=== PATIENT | male | born 1995 | race African-American/Black ===

== ENCOUNTER 2021-07-02 19:17 | Inpatient (IN) | payer SELFPAY ==
[~2021-07-02] VITALS: Ht 175.3 cm; Wt 72.6 kg
[2021-07-02 20:15] LABS: BASOPHILS % 0.4 % (0.0-2.0); EOSINOPHILS % 0.9 % (0.0-5.0); HEMATOCRIT. 42.7 % (42.0-52.0); LYMPHOCYTES % 28.7 % (20.0-50.0); MEAN CORPUSCULAR HEMOGLOBIN 29.7 pg (28.0-32.0); MEAN CORPUSCULAR VOLUME 84.3 fL (80.0-94.0); MEAN PLATELET VOLUME 8.9 fl (7.4-10.4); MONOCYTES % 5.2 % (2.0-8.0); NEUTROPHILS % 64.8 % (40.0-76.0); PLATELET 168 x1000/uL (130-400); RED BLOOD CELL COUNT 5.06 mill/uL (4.7-6.1); RED CELL DISTRIBUTION WIDTH 13.3 % (11.6-14.6)
[2021-07-02] MEDS ORDERED: CLIN300C12 MT (20:19)
[2021-07-02] MEDS ORDERED: ACET-2708 MT (20:20)
[2021-07-02 20:22] LABS: CHLORIDE 105 mEq/L (98-107)
[2021-07-02 20:27] LABS: ETHANOL BLOOD < 10 mg/dL
[2021-07-02 21:41] LABS: CLARITY URINE CLEAR (CLEAR); COLOR URINE YELLOW (YELLOW); KETONES URINE 1+ (NEGATIVE); LEUKOCYTE ESTERASE URINE NEGATIVE (NEGATIVE); NITRITE URINE NEGATIVE (NEGATIVE); OCCULT BLOOD URINE NEGATIVE (NEGATIVE); PH URINE 5.5 (4.5-8.0); PROTEIN URINE NEGATIVE (NEGATIVE); SPECIFIC GRAVITY URINE 1.021 (1.005-1.030)
[2021-07-02 21:53] LABS: *COCAINE SCREEN URINE NEGATIVE (NEGATIVE)
[2021-07-02 21:54] LABS: *AMPHETAMINES SCREEN URINE NEGATIVE (NEGATIVE); *BARBITURATES SCREEN URINE NEGATIVE (NEGATIVE); CANNABINOID URINE SCREEN NEGATIVE (NEGATIVE); METHADONE URINE SCREEN NEGATIVE (NEGATIVE); OPIATES URINE SCREEN NEGATIVE (NEGATIVE); PHENCYCLIDINE URINE SCREEN NEGATIVE (NEGATIVE)
[2021-07-02 21:55] LABS: *BENZODIAZEPINES SCREEN URINE NEGATIVE (NEGATIVE)
[2021-07-03 05:15] VITALS: BP 115/68
[2021-07-03] MEDS ORDERED: ONDANSETRON HCL 4MG/2ML INJ IV PRN (06:45)
[2021-07-03 08:26] VITALS: BP 100/66
[2021-07-03] MEDS: DEXT 5%/0.45% NACL KCL 20MEQ/L 1,000 ML IV SCH (09:57)
[2021-07-03] MEDS: PANTOPRAZOLE SODIUM 40 MG/VIAL IV SCH (09:57)
[2021-07-03] MEDS ORDERED: ACETAMINOPHEN 325MG TABLET PO PRN (11:30)
[2021-07-03 12:03] VITALS: BP 101/67
[2021-07-03] MEDS ORDERED: LORAZEPAM 2MG/ML CPJ IV NR (17:00)
[2021-07-03 17:36] VITALS: BP 107/70
[2021-07-03 20:00] VITALS: BP 121/84
[2021-07-04] VITALS: BP 117/74
[2021-07-04 04:00] VITALS: BP 106/76
[2021-07-04] MEDS: DEXT 5%/0.45% NACL KCL 20MEQ/L 1,000 ML IV SCH ×3 (04:27→22:35)
[2021-07-04] MEDS ORDERED: TEMAZEPAM 15MG CAPSULE PO PRN (07:45)
[2021-07-04] MEDS ORDERED: LORAZEPAM 1MG TABLET PO PRN (07:45)
[2021-07-04] MEDS: PANTOPRAZOLE SODIUM 40 MG/VIAL IV SCH (09:47)
[2021-07-04] MEDS: FLUOXETINE HCL 10 MG CAPSULE PO SCH (09:47)
[2021-07-04 12:29] VITALS: BP 112/60
[2021-07-04 16:10] VITALS: BP 109/67
[2021-07-04 20:00] VITALS: BP 104/74
[2021-07-04] MEDS ORDERED: TRAZODONE HCL 50MG TABLET PO SCH (21:00)
[2021-07-05] VITALS: BP 110/71
[2021-07-05 04:00] VITALS: BP 97/62
[2021-07-05 08:00] VITALS: BP 99/61
[2021-07-05] MEDS: FLUOXETINE HCL 10 MG CAPSULE PO SCH (08:39)
[2021-07-05] MEDS: DEXT 5%/0.45% NACL KCL 20MEQ/L 1,000 ML IV SCH (08:40)
[2021-07-05] MEDS ORDERED: FAMOTIDINE 20MG/2ML VIAL IV SCH (09:00)
[2021-07-05] MEDS ORDERED: FLUO10CA28 PO (10:49)
[2021-07-05 12:00] VITALS: BP 107/59
[2021-07-05 12:33] VITALS: BP 107/59
== END 2021-07-05 13:30 | disposition home or self-care (01) | DRG 52 ==
LOC: ER 19:17 → 6WST 07-03 01:52 → ENRESERV 07-03 03:48
PROVIDERS: ADMIT Internal Medicine; ATTEND Internal Medicine
DX: G93.41 Metabolic encephalopathy (principal); F29 Unspecified psychosis not due to a substance or known physiological condition; F12.90 Cannabis use, unspecified, uncomplicated; F32.9 Major depressive disorder, single episode, unspecified; G47.00 Insomnia, unspecified; Z79.1 Long term (current) use of non-steroidal anti-inflammatories (NSAID); Z87.820 Personal history of traumatic brain injury; Z79.899 Other long term (current) drug therapy
CPT/HCPCS: 36415; 70551; 71045; 73590; 80053; 80305; 80307; 80320; 80329; 81003; 82962; 85025; 99285; C9113; J2060; J3490; G0480

== ENCOUNTER 2021-08-01 08:31 | Emergency (ER) | payer SELFPAY ==
[~2021-08-01] VITALS: Ht 177.8 cm; Wt 75.0 kg
[~2021-08-01 08:31] MED LIST: ACET-2708 MT; FLUO10CA28 PO
[2021-08-01] MEDS ORDERED: DIPHENHYDRAMINE 50MG/ML VIAL IM STA (08:51)
[2021-08-01] MEDS ORDERED: LORAZEPAM 2MG/ML CPJ IM STA (08:51)
[2021-08-01] MEDS ORDERED: OLANZAPINE 10 MG/VIAL IM STA (08:51)
[2021-08-01] MEDS ORDERED: SODIUM CHLORIDE 0.9% 1,000 ML IV ONE ×2 (09:00→10:00)
[2021-08-01 09:56] LABS: BASOPHILS % 0.5 % (0.0-2.0); EOSINOPHILS % 0.1 % (0.0-5.0); HEMATOCRIT. 42.3 % (42.0-52.0); HEMOGLOBIN. 14.2 g/dL (14.0-18.0); MEAN CORPUSCULAR HEMOGLOBIN 28.8 pg (28.0-32.0); MEAN CORPUSCULAR VOLUME 85.8 fL (80.0-94.0); MEAN PLATELET VOLUME 8.8 fl (7.4-10.4); NEUTROPHILS % 82.4 % (40.0-76.0); PLATELET 231 x1000/uL (130-400); RED BLOOD CELL COUNT 4.93 mill/uL (4.7-6.1); RED CELL DISTRIBUTION WIDTH 13.8 % (11.6-14.6)
[2021-08-01 10:02] LABS: CHLORIDE 105 mEq/L (98-107)
[2021-08-01 10:07] LABS: ETHANOL BLOOD < 10 mg/dL
[2021-08-01 11:00] LABS: CLARITY URINE HAZY (CLEAR); COLOR URINE DK YELLOW (YELLOW); KETONES URINE 2+ (NEGATIVE); LEUKOCYTE ESTERASE URINE 1+ (NEGATIVE); NITRITE URINE NEGATIVE (NEGATIVE); OCCULT BLOOD URINE 3+ (NEGATIVE); PH URINE 5.5 (4.5-8.0); PROTEIN URINE 2+ (NEGATIVE); SPECIFIC GRAVITY URINE 1.018 (1.005-1.030); UROBILINOGEN URINE 0.2 E.U./dL (0.2-1.0)
[2021-08-01 11:22] LABS: METHADONE URINE SCREEN NEGATIVE (NEGATIVE)
[2021-08-01 11:23] LABS: *AMPHETAMINES SCREEN URINE PRESUMTIVE POSITIVE (NEGATIVE); *BARBITURATES SCREEN URINE NEGATIVE (NEGATIVE); *BENZODIAZEPINES SCREEN URINE NEGATIVE (NEGATIVE); *COCAINE SCREEN URINE NEGATIVE (NEGATIVE); CANNABINOID URINE SCREEN NEGATIVE (NEGATIVE); OPIATES URINE SCREEN NEGATIVE (NEGATIVE); PHENCYCLIDINE URINE SCREEN NEGATIVE (NEGATIVE)
[2021-08-01] MEDS ORDERED: FLUOXETINE HCL 10 MG CAPSULE PO SCH (13:45)
[2021-08-02] MEDS ORDERED: SODIUM CHLORIDE 0.9% 1,000 ML IV ONE (01:00)
[2021-08-02 05:30] VITALS: BP 128/60
[2021-08-02] MEDS ORDERED: OLANZAPINE 5MG TABLET PO SCH (09:00)
== END 2021-08-02 06:31 | disposition home or self-care (01) ==
LOC: ER 08:39
DX: F15.129 Other stimulant abuse with intoxication, unspecified (principal); R45.1 Restlessness and agitation; I95.9 Hypotension, unspecified; R00.0 Tachycardia, unspecified; Z20.822 Contact with and (suspected) exposure to COVID-19; F25.0 Schizoaffective disorder, bipolar type; Z78.1 Physical restraint status
CPT/HCPCS: 36415; 70450; 71045; 80053; 80305; 80307; 80320; 80329; 81003; 82962; 85025; 87086; 93005; 96360; 96361; 96372; 99285; C9803; J1200; J2060; J3490; J7030; U0003; U0005; G0480

== ENCOUNTER 2022-04-22 10:10 | Emergency (ER) | payer MEDICAID, OTHER ==
[~2022-04-22] VITALS: Ht 182.9 cm; Wt 91.0 kg
[2022-04-22] MEDS ORDERED: ONDANSETRON HCL 4MG/2ML INJ IV STA (10:56)
[2022-04-22] MEDS ORDERED: MORPHINE SULFATE 4 MG/ML CPJ (NOT FOR IM USE) IV STA (10:56)
[2022-04-22] MEDS ORDERED: SODIUM CHLORIDE 0.9% 1,000 ML IV ONE (11:00)
[2022-04-22 11:09] LABS: BASOPHILS % 1.2 % (0.0-2.0); EOSINOPHILS % 5.1 % (0.0-5.0); HEMATOCRIT. 41.5 % (42.0-52.0); HEMOGLOBIN. 14.1 g/dL (14.0-18.0); LYMPHOCYTES % 21.5 % (20.0-50.0); MEAN CORPUSCULAR HEMOGLOBIN 28.5 pg (28.0-32.0); MEAN CORPUSCULAR VOLUME 83.8 fL (80.0-94.0); MEAN PLATELET VOLUME 8.2 fl (7.4-10.4); MONOCYTES % 4.1 % (2.0-8.0); NEUTROPHILS % 68.1 % (40.0-76.0); PLATELET 198 x1000/uL (130-400); RED BLOOD CELL COUNT 4.95 mill/uL (4.7-6.1); RED CELL DISTRIBUTION WIDTH 14.2 % (11.6-14.6)
[2022-04-22 11:20] LABS: CHLORIDE 108 mEq/L (98-107)
[2022-04-22 12:09] LABS: ETHANOL BLOOD < 10 mg/dL
[2022-04-22 12:32] LABS: *AMPHETAMINES SCREEN URINE NEGATIVE (NEGATIVE); *BARBITURATES SCREEN URINE NEGATIVE (NEGATIVE); *BENZODIAZEPINES SCREEN URINE NEGATIVE (NEGATIVE); *COCAINE SCREEN URINE NEGATIVE (NEGATIVE); CANNABINOID URINE SCREEN NEGATIVE (NEGATIVE); METHADONE URINE SCREEN NEGATIVE (NEGATIVE); OPIATES URINE SCREEN PRESUMTIVE POSITIVE (NEGATIVE); PHENCYCLIDINE URINE SCREEN NEGATIVE (NEGATIVE)
[2022-04-22] MEDS ORDERED: IBUP-2028 MT (13:44)
[2022-04-22 13:59] VITALS: BP 118/76
== END 2022-04-22 14:24 ==
LOC: ER 10:30
DX: M25.522 Pain in left elbow (principal); F31.9 Bipolar disorder, unspecified; F20.9 Schizophrenia, unspecified
CPT/HCPCS: 36415; 70450; 71045; 72125; 73080; 80053; 80305; 80307; 80320; 80329; 83690; 84484; 85025; 93005; 96361; 96374; 96375; 99285; J2270; J2405; J7030; G0480